=== PATIENT | female | born 1990 | race Caucasian/White ===

== ENCOUNTER 2016-09-08 05:56 | Emergency (ER) | payer OTHER ==
[2016-09-08] MEDS ORDERED: Ondansetron ODT 4 MG TAB ONE (06:35)
[2016-09-08 06:57] LABS: #Basophils 0.1 thou/uL (0.0-0.2); #Eosinphils 0.5 thou/uL (0.0-0.7); #Lymphocytes 3.6 thou/uL (1.20-3.40); #Monocytes 0.8 thou/uL (0.11-0.59); #Neutrophils 5.7 thou/uL (1.40-6.50); %Basophils 0.9 % (0.0-1.0); %Eosinophils 5.1 % (0.0-10.0); %Lymphocytes 33.9 % (21.0-51.0); %Monocytes 7.6 % (0.0-10.0); %Neutrophils 52.6 % (42.0-75.0); Hemoglobin 13.8 g/dL (12.0-16.0); Mean Corpuscular HGB CONC 33.9 g/dL (32.0-36.0); Mean Corpuscular Volume 94.5 fl (81.0-99.0); Mean Platelet Volume 7.1 fL (7.4-10.4); Platelet Count 292 thou/uL (130-400); RBC Distribution Width 12.5 % (11.5-14.5); Red Blood Cell (RBC) Count 4.31 mill/uL (4.20-5.40); White Blood Cell (WBC) Count 10.8 thou/uL (4.8-10.8)
[2016-09-08 07:17] LABS: CKMB 0.4 ng/mL (0-6.6); Troponin I Less than 0.010 ng/mL (< 0.028)
[2016-09-08 07:31] LABS: ALT (SGPT) 10 U/L (0-55); AST (SGOT) 12 U/L (5-34); Albumin 3.6 g/dL (3.5-5.0); Alkaline Phosphatase 76 U/L (40-150); Anion Gap 13 mmol/L (10-20); BUN (Urea Nitrogen) 9 mg/dL (7.0-18.7); Bilirubin, Total Less than 0.3 mg/dL (0.2-1.2); Calc. Creatinine Clearance 0 mL/min (70-130); Calcium 8.7 mg/dL (7.8-10.44); Carbon Dioxide 22 mmol/L (22-29); Chloride 108 mmol/L (98-107); Estimated GFR-MDRD 80; Globulin 2.5 g/dL (2.4-3.5); Glucose 90 mg/dL (70-105); Potassium 3.5 mmol/L (3.5-5.1); Protein, Total 6.1 g/dL (6.0-8.3); Sodium 139 mmol/L (136-145)
== END 2016-09-08 07:40 | disposition home or self-care (01) ==
LOC: MADERS 05:56
DX: R07.81 Pleurodynia (principal); R11.0 Nausea; K21.9 Gastro-esophageal reflux disease without esophagitis; G43.909 Migraine, unspecified, not intractable, without status migrainosus; F17.210 Nicotine dependence, cigarettes, uncomplicated; Z79.899 Other long term (current) drug therapy
CPT/HCPCS: 80053; 82553; 84484; 85025; 85379; Q0162

== ENCOUNTER 2017-02-07 16:37 | Emergency (ER) | payer BC, OTHER ==
[2017-02-07] MEDS ORDERED: Naproxen 500 MG TAB ONE (17:54)
[2017-02-07] MEDS ORDERED: HYDROcodone/Acetaminophen 10/325 mg Tablet ONE (17:54)
[2017-02-07] MEDS ORDERED: Diazepam 5 MG TAB ONE (17:54)
== END 2017-02-07 18:30 | disposition home or self-care (01) ==
LOC: MADERS 16:37
DX: M62.9 Disorder of muscle, unspecified (principal); K21.9 Gastro-esophageal reflux disease without esophagitis; F17.210 Nicotine dependence, cigarettes, uncomplicated; X50.0XXA Overexertion from strenuous movement or load, initial encounter
CPT/HCPCS: 99283

== ENCOUNTER 2017-10-14 08:38 | Emergency (ER) | payer BC ==
--- NOTE | 2017-10-14 09:38 | RAD ---
PA AND LATERAL CHEST RADIOGRAPH: Date: 10-14-17 History: Cough. Comparison: 06-15-14 FINDINGS: Cardiac silhouette and pulmonary vasculature are within normal limits. The lungs are clear. There has been no interval change from the prior exam. IMPRESSION: No acute cardiopulmonary process. POS: MATEUSZ
== END 2017-10-14 10:00 | disposition home or self-care (01) ==
LOC: MADERS 08:38
DX: J40 Bronchitis, not specified as acute or chronic (principal); G43.909 Migraine, unspecified, not intractable, without status migrainosus; K21.9 Gastro-esophageal reflux disease without esophagitis; F17.210 Nicotine dependence, cigarettes, uncomplicated
CPT/HCPCS: 71046

== ENCOUNTER 2018-02-16 19:37 | Emergency (ER) | payer BC ==
[2018-02-16] MEDS ORDERED: Ibuprofen 800 MG TAB ONE (19:58)
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
== END 2018-02-16 21:15 | disposition home or self-care (01) ==
LOC: MADERS 19:37
DX: S60.212A Contusion of left wrist, initial encounter (principal); S70.02XA Contusion of left hip, initial encounter; S80.02XA Contusion of left knee, initial encounter; I10 Essential (primary) hypertension; K21.9 Gastro-esophageal reflux disease without esophagitis; G43.909 Migraine, unspecified, not intractable, without status migrainosus; F17.210 Nicotine dependence, cigarettes, uncomplicated; Z79.899 Other long term (current) drug therapy; V29.9XXA Motorcycle rider (driver) (passenger) injured in unspecified traffic accident, initial encounter
CPT/HCPCS: 99406

== ENCOUNTER 2018-03-29 09:49 | Emergency (ER) | payer BC | END 2018-03-29 10:40 | disposition home or self-care (01) | LOC: MADERS 09:49 | DX: M43.6 Torticollis (principal); M62.838 Other muscle spasm; G43.709 Chronic migraine without aura, not intractable, without status migrainosus; F17.210 Nicotine dependence, cigarettes, uncomplicated; K21.9 Gastro-esophageal reflux disease without esophagitis; Z79.899 Other long term (current) drug therapy | CPT/HCPCS: 99283 ==

== ENCOUNTER 2020-08-26 00:51 | Emergency (ER) | payer SELFPAY ==
[2020-08-26 01:17] LABS: #Basophils 0.1 thou/uL (0.0-0.2); #Eosinphils 0.3 thou/uL (0.0-0.7); #Lymphocytes 4.7 thou/uL (1.20-3.40); #Monocytes 0.8 thou/uL (0.11-0.59); #Neutrophils 7.7 thou/uL (1.40-6.50); %Basophils 0.8 % (0.0-1.0); %Eosinophils 2.5 % (0.0-10.0); %Lymphocytes 34.6 % (21.0-51.0); %Monocytes 5.6 % (0.0-10.0); %Neutrophils 56.5 % (42.0-75.0); Hemoglobin 14.6 g/dL (12.0-16.0); Mean Corpuscular HGB CONC 32.7 g/dL (32.0-36.0); Mean Corpuscular Hemoglobin 33.5 pg (27.0-31.0); Mean Corpuscular Volume 102.2 fL (78.0-98.0); Mean Platelet Volume 7.8 fL (7.4-10.4); Platelet Count 361 thou/uL (130-400); RBC Distribution Width 12.4 % (11.5-14.5); Red Blood Cell (RBC) Count 4.38 mill/uL (4.20-5.40); White Blood Cell (WBC) Count 13.6 thou/uL (4.8-10.8)
[2020-08-26 01:30] LABS: Bilirubin Negative (Negative); Blood, Urine Negative (Negative); Clarity Clear (Clear); Glucose, Urine (Dipstick) Negative (Negative); Ketone, Urine Negative (Negative); Leukocyte Negative (Negative); Nitrite Negative (Negative); Protein, Urine (Dipstick) Negative (Neg-Trace); Specific Gravity, Urine 1.015 (1.005-1.030); Urobilinogen 0.2 mg/dL (Less than 2)
[2020-08-26] MEDS ORDERED: Morphine 4 MG/ML VIAL ONE ×2 (01:31→02:21)
[2020-08-26] MEDS ORDERED: Morphine 2 MG/ML VIAL ONE (01:32)
[2020-08-26] MEDS ORDERED: Aspirin Chewable 81 MG TAB ONE (01:32)
[2020-08-26 01:33] LABS: Pregnancy Test - Urine (BHCG) Negative (Negative); Pregu Control Background? CLEAR/WHITE (CLR/WHITE); Pregu Control Bar Appear? YES (CONTROL BAR); Specific Gravity 1.015 (1.002-1.036)
[2020-08-26] MEDS ORDERED: Ketorolac Tromethamine 30 MG/ML VIAL ONE (01:54)
[2020-08-26 02:21] LABS: ALT (SGPT) 12 U/L (8-55); AST (SGOT) 14 U/L (5-34); Albumin 4.1 g/dL (3.5-5.0); Alkaline Phosphatase 97 U/L (40-110); Anion Gap 15 mmol/L (10-20); BUN (Urea Nitrogen) 6 mg/dL (7.0-18.7); Bilirubin, Total 0.2 mg/dL (0.2-1.2); Calc. Creatinine Clearance 0 mL/min (70-130); Calcium 8.9 mg/dL (7.8-10.44); Carbon Dioxide 24 mmol/L (22-29); Chloride 105 mmol/L (98-107); Glucose 89 mg/dL (70-105); Protein, Total 7.1 g/dL (6.0-8.3); Sodium 141 mmol/L (136-145)
[2020-08-26 02:47] LABS: Critical Call Chemistry EMS.CLJ; Potassium 2.9 mmol/L (3.5-5.1)
== END 2020-08-26 02:40 | disposition home or self-care (01) ==
LOC: MADERS 00:51
DX: S29.011A Strain of muscle and tendon of front wall of thorax, initial encounter (principal); G43.909 Migraine, unspecified, not intractable, without status migrainosus; I10 Essential (primary) hypertension; K21.9 Gastro-esophageal reflux disease without esophagitis; J45.909 Unspecified asthma, uncomplicated; F17.210 Nicotine dependence, cigarettes, uncomplicated; Z79.899 Other long term (current) drug therapy; X58.XXXA Exposure to other specified factors, initial encounter
CPT/HCPCS: 71045; 80053; 81003; 81025; 83880; 84484; 85025; 85379; 93005; 96374; 96375; 96376; J1885; J2270

== ENCOUNTER 2020-09-13 15:52 | Emergency (ER) | payer SELFPAY ==
[~2020-09-13 15:52] MED LIST: Dextrose 5 %-0.45 % NaCl 1000 ml Bag ONE
[2020-09-13] MEDS ORDERED: Multivit, Adult Inj 10 ML VIAL ONE (16:46)
[2020-09-13] MEDS ORDERED: Thiamine HCl 200 MG/2 ML VIAL ONE (16:46)
[2020-09-13 17:07] LABS: Pregnancy Test - Urine (BHCG) Negative (Negative)
[2020-09-13 17:08] LABS: Bilirubin Small (Negative); Blood, Urine Negative (Negative); Clarity Clear (Clear); Glucose, Urine (Dipstick) Negative (Negative); Ketone, Urine Trace mg/dL (Negative); Leukocyte Negative (Negative); Nitrite Negative (Negative); Pregu Control Background? CLEAR/WHITE (CLR/WHITE); Pregu Control Bar Appear? YES (CONTROL BAR); Protein, Urine (Dipstick) 30 mg/dL (Neg-Trace); Specific Gravity 1.025 (1.002-1.036); Specific Gravity, Urine 1.025 (1.005-1.030); Urobilinogen 0.2 mg/dL (Less than 2)
[2020-09-13 17:15] LABS: Bacteria/HPF Rare-Few HPF (None Seen); RBC/HPF 0-3 HPF (0-3); Squamous Epithelial 0-3 HPF (0-3); WBC/HPF None Seen HPF (0-3)
[2020-09-13 17:16] LABS: Mucous/LPF 1+ LPF (<2+)
[2020-09-13 17:21] LABS: Amphetamine Not Detected (NotDetected); Barbiturates Screen Detected (NotDetected); Benzodiazepine Screen Not Detected (NotDetected); Cocaine Metabolite Screen Not Detected (NotDetected); Medtox Control Line Valid? VALID (VALID); Methadone Not Detected (NotDetected); Methamphetamine Not Detected (NotDetected); Opiate Screen Not Detected (NotDetected); Oxycodone Screen Not Detected (NotDetected); Phencyclidine (PCP) Not Detected (NotDetected); THC/Cannabinoid Screen Not Detected (NotDetected); Tricyclic Screen Not Detected (NotDetected)
[2020-09-13 17:29] LABS: Band 2 % (5-11); Burr Cells SLIGHT = 2-5 cells (100X) (0-1/hpf); Eosinophils 1 % (0-10); Hemoglobin 15.1 g/dL (12.0-16.0); Lymphocytes 35 % (21-51); MDiff Complete? YES; Mean Corpuscular HGB CONC 31.9 g/dL (32.0-36.0); Mean Corpuscular Hemoglobin 32.4 pg (27.0-31.0); Mean Corpuscular Volume 101.8 fL (78.0-98.0); Mean Platelet Volume 7.2 fL (7.4-10.4); Monocytes 6 % (0-10); Neutrophil 56 % (42-75); Platelet Count 397 thou/uL (130-400); Platelet Morphology Comment Appears Adequate; RBC Distribution Width 12.1 % (11.5-14.5); Red Blood Cell (RBC) Count 4.66 mill/uL (4.20-5.40); White Blood Cell (WBC) Count 11.1 thou/uL (4.8-10.8)
[2020-09-13 17:35] LABS: ALT (SGPT) 11 U/L (8-55); AST (SGOT) 16 U/L (5-34); Albumin 4.4 g/dL (3.5-5.0); Alkaline Phosphatase 86 U/L (40-110); Anion Gap 17 mmol/L (10-20); BUN (Urea Nitrogen) 9 mg/dL (7.0-18.7); Bilirubin, Total 0.2 mg/dL (0.2-1.2); CK (CPK) 28 U/L (29-168); Calc. Creatinine Clearance 0 mL/min (70-130); Calcium 9.7 mg/dL (7.8-10.44); Carbon Dioxide 23 mmol/L (22-29); Chloride 106 mmol/L (98-107); Globulin 3.3 g/dL (2.4-3.5); Glucose 93 mg/dL (70-105); Potassium 3.3 mmol/L (3.5-5.1); Protein, Total 7.7 g/dL (6.0-8.3); Sodium 143 mmol/L (136-145)
[2020-09-13] MEDS ORDERED: Diazepam 5 MG TAB ONE (18:12)
== END 2020-09-13 19:26 | disposition home or self-care (01) ==
LOC: MADERS 15:52
DX: F10.239 Alcohol dependence with withdrawal, unspecified (principal); F11.23 Opioid dependence with withdrawal; T39.8X5A Adverse effect of other nonopioid analgesics and antipyretics, not elsewhere classified, initial encounter; G43.909 Migraine, unspecified, not intractable, without status migrainosus; I10 Essential (primary) hypertension; K21.9 Gastro-esophageal reflux disease without esophagitis; J45.909 Unspecified asthma, uncomplicated; F17.210 Nicotine dependence, cigarettes, uncomplicated; Z79.899 Other long term (current) drug therapy
CPT/HCPCS: 70450; 71045; 80053; 80306; 81003; 81015; 81025; 82550; 84484; 85025; 93005; 94760; 96365; 96366; 96375; J3411; J7042

== ENCOUNTER 2021-02-16 10:44 | Emergency (ER) | payer SELFPAY | END 2021-02-16 11:40 | disposition home or self-care (01) | LOC: MADERS 10:44 | DX: J02.0 Streptococcal pharyngitis (principal); T78.40XA Allergy, unspecified, initial encounter; I10 Essential (primary) hypertension; K21.9 Gastro-esophageal reflux disease without esophagitis; F17.210 Nicotine dependence, cigarettes, uncomplicated | CPT/HCPCS: 96372; 99283; J1040 ==

== ENCOUNTER 2022-01-07 16:58 | Emergency (ER) | payer BC ==
[2022-01-07] MEDS ORDERED: Ketorolac Tromethamine 30 MG/ML VIAL ONE (17:35)
[2022-01-07] MEDS ORDERED: Orphenadrine Citrate 60 MG/2 ML VIAL ONE (17:35)
== END 2022-01-07 18:02 | disposition home or self-care (01) ==
LOC: MADERS 16:58
DX: G89.29 Other chronic pain (principal); M54.50 Low back pain, unspecified; K21.9 Gastro-esophageal reflux disease without esophagitis; I10 Essential (primary) hypertension; F17.210 Nicotine dependence, cigarettes, uncomplicated; Z79.899 Other long term (current) drug therapy
CPT/HCPCS: 96372; 99283; J1885; J2360

== ENCOUNTER 2022-11-28 14:04 | Emergency (ER) | payer BC ==
[2022-11-28] MEDS ORDERED: Lidocaine 1% (PF) 30 ML VIAL ONE (15:25)
[2022-11-28] MEDS ORDERED: Ibuprofen 800 MG TAB ONE (15:30)
[2022-11-28] MEDS ORDERED: Sulfameth/Trimethoprim DS 800-160mg TAB ONE (15:30)
[2022-11-28] MEDS ORDERED: Azithromycin 200 MG/5 ML Oral Suspension ONE (17:50)
== END 2022-11-28 16:19 | disposition home or self-care (01) ==
LOC: MADERS 14:04
DX: S61.213A Laceration without foreign body of left middle finger without damage to nail, initial encounter (principal); L02.415 Cutaneous abscess of right lower limb; K21.9 Gastro-esophageal reflux disease without esophagitis; I10 Essential (primary) hypertension; F17.210 Nicotine dependence, cigarettes, uncomplicated; W26.0XXA Contact with knife, initial encounter
CPT/HCPCS: 12001; J2001

== ENCOUNTER 2023-12-26 13:21 | Emergency (ER) | payer BC | END 2023-12-26 13:49 | disposition home or self-care (01) | LOC: MADERS 13:21 | DX: R60.0 Localized edema (principal); G62.9 Polyneuropathy, unspecified; Z76.0 Encounter for issue of repeat prescription; I10 Essential (primary) hypertension; F17.210 Nicotine dependence, cigarettes, uncomplicated | CPT/HCPCS: 99284 ==

== ENCOUNTER 2024-04-06 00:23 | Emergency (ER) | payer BC ==
[2024-04-06] MEDS ORDERED: Ipratropium/Albuterol 3 ML NEB ONE (01:12)
[2024-04-06] MEDS ORDERED: Dexamethasone 10 MG/ML VIAL ONE (01:13)
[2024-04-06] MEDS ORDERED: Benzonatate 100 MG CAP ONE (01:13)
== END 2024-04-06 02:17 | disposition home or self-care (01) ==
LOC: MADERS 00:23
DX: J06.9 Acute upper respiratory infection, unspecified (principal); J45.901 Unspecified asthma with (acute) exacerbation; I10 Essential (primary) hypertension; K21.9 Gastro-esophageal reflux disease without esophagitis; F17.210 Nicotine dependence, cigarettes, uncomplicated; Z79.899 Other long term (current) drug therapy
CPT/HCPCS: 71046; 87428; 96372; J1100; J7620

== ENCOUNTER 2024-04-07 15:02 | Emergency (ER) | payer BC ==
[2024-04-07] MEDS ORDERED: Ipratropium/Albuterol 3 ML NEB ONE ×2 (15:40→16:47)
[2024-04-07] MEDS ORDERED: AMOXicillin 250 MG CAP ONE (16:40)
[2024-04-07] MEDS ORDERED: Doxycycline 100 MG CAP ONE (16:40)
[2024-04-07] MEDS ORDERED: Lidocaine 1% PF 5 ML VIAL ONE (16:52)
[2024-04-07] MEDS ORDERED: cefTRIAXone (ROCEPHIN) 1 GM VIAL ONE (16:52)
[2024-04-07] MEDS ORDERED: Ketorolac Tromethamine 30 MG (1 mL) VIAL ONE (17:25)
[2024-04-07] MEDS ORDERED: Acetaminophen 325 MG TAB ONE (17:25)
== END 2024-04-07 19:20 | disposition home or self-care (01) ==
LOC: MADERS 15:02
DX: J18.9 Pneumonia, unspecified organism (principal); B97.89 Other viral agents as the cause of diseases classified elsewhere; J45.901 Unspecified asthma with (acute) exacerbation; R09.02 Hypoxemia; K21.9 Gastro-esophageal reflux disease without esophagitis; F17.210 Nicotine dependence, cigarettes, uncomplicated; Z79.899 Other long term (current) drug therapy
CPT/HCPCS: 94799; 96372; J0696; J1885; J7620

== ENCOUNTER 2024-04-20 20:09 | Emergency (ER) | payer BC | END 2024-04-20 22:45 | disposition home or self-care (01) | LOC: MADERS 20:09 | DX: N39.0 Urinary tract infection, site not specified (principal); B37.31 Acute candidiasis of vulva and vagina; K21.9 Gastro-esophageal reflux disease without esophagitis; I10 Essential (primary) hypertension; F17.210 Nicotine dependence, cigarettes, uncomplicated; Z79.899 Other long term (current) drug therapy | CPT/HCPCS: 87077; 87086; 87186; 99283 ==

== ENCOUNTER 2024-04-22 15:58 | Emergency (ER) | payer BC ==
[~2024-04-22 15:58] MED LIST changes: -Dextrose 5 %-0.45 % NaCl 1000 ml Bag ONE; +Iopamidol 370 76% 100 ML VIAL ONE
[2024-04-22 16:37] LABS: Bilirubin Negative (Negative); Blood, Urine Moderate (Negative); Clarity Slightly Cloudy (Clear); Glucose, Urine (Dipstick) Negative (Negative); Ketone, Urine Negative (Negative); Leukocyte Trace (Negative); Nitrite Negative (Negative); Protein, Urine (Dipstick) > or equal to 300 mg/dL (Neg-Trace); Urobilinogen 0.2 mg/dL (Less than 2)
[2024-04-22 16:46] LABS: CAUTI Indications for Culture Pelvic or flank pain
[2024-04-22 16:47] LABS: Bacteria/HPF 1+ HPF (None Seen)
[2024-04-22 16:48] LABS: Urine Culture Reflex Yes Yes
[2024-04-22] MEDS ORDERED: Ipratropium/Albuterol 3 ML NEB ONE ×2 (17:05→19:17)
[2024-04-22] MEDS ORDERED: Ketorolac Tromethamine 30 MG (1 mL) VIAL ONE (17:05)
[2024-04-22] MEDS ORDERED: guaiFENesin ER 600 MG TAB ONE (17:05)
[2024-04-22 17:52] LABS: ALT (SGPT) 14 U/L (8-55); AST (SGOT) 17 U/L (5-34); Albumin 2.6 g/dL (3.5-5.0); Alkaline Phosphatase 92 U/L (40-110); Anion Gap 15 mmol/L (10-20); BUN (Urea Nitrogen) 8 mg/dL (7.0-18.7); Bilirubin, Total 0.7 mg/dL (0.2-1.2); Calc. Creatinine Clearance 0 mL/min (70-130); Calcium 8.3 mg/dL (7.8-10.44); Carbon Dioxide 23 mmol/L (22-29); Chloride 103 mmol/L (98-107); Estimated GFR 71; Glucose 97 mg/dL (70-105); Lipase 7 U/L (8-78); Potassium 3.3 mmol/L (3.5-5.1); Protein, Total 6.6 g/dL (6.0-8.3); Sodium 138 mmol/L (136-145)
[2024-04-22 17:53] LABS: Hematocrit 36.2 % (36.0-47.0); Hemoglobin 11.4 g/dL (12.0-16.0); Mean Corpuscular HGB CONC 31.3 g/dL (32.0-36.0); Mean Corpuscular Volume 89.5 fl (78.0-98.0); Mean Platelet Volume 6.9 fL (7.4-10.4); Platelet Count 480 10x3/uL (130-400); RBC Distribution Width 15.5 % (11.5-14.5); Red Blood Cell (RBC) Count 4.05 mill/uL (4.20-5.40); White Blood Cell (WBC) Count 19.1 10x3/uL (4.8-10.8)
[2024-04-22 17:54] LABS: Anisocytosis SLIGHT = 6-15 cells (100X) (0-5/hpf); Band 2 % (5-11); Eosinophils 1 % (0-10); Hypochromia MODERATE=16-30 cells (100X) (0-5/hpf); Lymphocytes 7 % (21-51); MDiff Complete? YES; Manual Diff?? YES; Monocytes 3 % (0-10); Neutrophil 86 % (42-75); Reactive Lymphocytes 1 % (0-10)
[2024-04-22 17:55] LABS: Platelet Adequacy Comment Appears Increased
[2024-04-22 18:25] LABS: Amphetamine Not Detected (NotDetected); Barbiturates Screen Not Detected (NotDetected); Benzodiazepine Screen Not Detected (NotDetected); Cocaine Metabolite Screen Not Detected (NotDetected); Methadone Not Detected (NotDetected); Methamphetamine Not Detected (NotDetected); Opiate Screen Not Detected (NotDetected); Oxycodone Screen Not Detected (NotDetected); Phencyclidine (PCP) Not Detected (NotDetected); THC/Cannabinoid Screen Not Detected (NotDetected); Tricyclic Screen Not Detected (NotDetected)
[2024-04-22] MEDS ORDERED: Sodium Chloride 0.9% 100 ML ONE (19:17)
[2024-04-22] MEDS ORDERED: cefTRIAXone (ROCEPHIN) 2 GM VIAL ONE (19:17)
[2024-04-22 20:07] LABS: Base Excess-Venous 4.7 mmol/L (-2.0 to 3.0); Bicarbonate (HCO3v) 29.1 mmol/L (22.0-28.0); CO2 Tension (PvCO2) 41.5 mmHg (42.0-51.0); Calcium, Ionized 1.07 mmol/L (1.15-1.33); Chloride 99 mmol/L (98-107); Hemoglobin - Calc 12.6 g/dL (12.0-16.0); Sodium 138 mmol/L (138-145); T. Carbon Dioxide 30.3 mmol/L (22.0-28.0); vO2 Saturation-calc 86.3 % (60.0-85.0)
[2024-04-22] MEDS ORDERED: traMADol HCl 50 MG TAB ONE (20:09)
[2024-04-23] MEDS ORDERED: Ondansetron PF 4 MG/2 ML Vial ONE (01:08)
[2024-04-23] MEDS ORDERED: Morphine 2 MG/ML VIAL ONE (01:08)
== END 2024-04-23 01:36 | disposition short-term general hospital (02) ==
LOC: MADERS 15:58
DX: N39.0 Urinary tract infection, site not specified (principal); N10 Acute pyelonephritis; R09.02 Hypoxemia; J18.9 Pneumonia, unspecified organism; K21.9 Gastro-esophageal reflux disease without esophagitis; I10 Essential (primary) hypertension; F17.210 Nicotine dependence, cigarettes, uncomplicated; Z79.899 Other long term (current) drug therapy
CPT/HCPCS: 71046; 71275; 80053; 80306; 81001; 82330; 82803; 83605; 83690; 84443; 85025; 85379; 87040; 87070; 87086; 87205; 96365; 96375; J0696; J1885; J2272; J2405; J7620; Q9967

== ENCOUNTER 2024-07-14 08:15 | Emergency (ER) | payer BC ==
[2024-07-14] MEDS ORDERED: Fluconazole 100 MG TAB ONE (09:49)
== END 2024-07-14 09:50 | disposition home or self-care (01) ==
LOC: MADERS 08:15
DX: H65.91 Unspecified nonsuppurative otitis media, right ear (principal); F17.210 Nicotine dependence, cigarettes, uncomplicated; I10 Essential (primary) hypertension; G43.909 Migraine, unspecified, not intractable, without status migrainosus; K21.9 Gastro-esophageal reflux disease without esophagitis; G89.29 Other chronic pain; M54.2 Cervicalgia; Z79.899 Other long term (current) drug therapy
CPT/HCPCS: 87081; 87430; 99283

== ENCOUNTER 2025-01-11 19:44 | Emergency (ER) | payer BC ==
[2025-01-11] MEDS ORDERED: Methocarbamol 500 MG TAB ONE (20:10)
== END 2025-01-11 20:36 | disposition home or self-care (01) ==
LOC: MADERS 19:44
DX: S39.012A Strain of muscle, fascia and tendon of lower back, initial encounter (principal); M54.42 Lumbago with sciatica, left side; I10 Essential (primary) hypertension; F17.210 Nicotine dependence, cigarettes, uncomplicated; X50.1XXA Overexertion from prolonged static or awkward postures, initial encounter
CPT/HCPCS: 96372; 99283; J1885

== ENCOUNTER 2025-03-15 19:45 | Emergency (ER) | payer BC ==
[2025-03-15] MEDS ORDERED: Bacitracin 1 PK ONE (20:34)
[2025-03-15] MEDS ORDERED: Lidocaine 1% PF 5 ML VIAL ONE (20:34)
== END 2025-03-15 20:52 | disposition home or self-care (01) ==
LOC: MADERS 19:45
DX: S01.111A Laceration without foreign body of right eyelid and periocular area, initial encounter (principal); S60.022A Contusion of left index finger without damage to nail, initial encounter; S60.032A Contusion of left middle finger without damage to nail, initial encounter; I10 Essential (primary) hypertension; F17.210 Nicotine dependence, cigarettes, uncomplicated; X58.XXXA Exposure to other specified factors, initial encounter
CPT/HCPCS: 12011; 99283

== ENCOUNTER 2025-04-13 14:00 | Emergency (ER) | payer BC ==
[2025-04-13 14:41] LABS: #Basophils 0.1 thou/uL (0.0-0.2); #Eosinophils 0.3 thou/uL (0.0-0.7); #Lymphocytes 3.3 thou/uL (1.20-3.40); #Monocytes 0.7 thou/uL (0.11-0.59); #Neutrophils 7.2 thou/uL (1.40-6.50); %Basophils 0.8 % (0.0-1.0); %Eosinophils 2.9 % (0.0-10.0); %Lymphocytes 28.5 % (21.0-51.0); %Monocytes 6.1 % (0.0-10.0); %Neutrophils 61.7 % (42.0-75.0); Hematocrit 39.3 % (36.0-47.0); Hemoglobin 12.5 g/dL (12.0-16.0); Mean Corpuscular Hemoglobin 28.6 pg (27.0-31.0); Mean Corpuscular Volume 89.8 fl (78.0-98.0); Platelet Count 435 10x3/uL (130-400); Red Blood Cell (RBC) Count 4.38 mill/uL (4.20-5.40); White Blood Cell (WBC) Count 11.7 10x3/uL (4.8-10.8)
[2025-04-13 14:56] LABS: Anion Gap 13 mmol/L (10-20); BUN (Urea Nitrogen) 9 mg/dL (7.0-18.7); Calc. Creatinine Clearance 0 mL/min (70-130); Calcium 8.4 mg/dL (7.8-10.44); Carbon Dioxide 25 mmol/L (22-29); Chloride 107 mmol/L (98-107); Glucose 95 mg/dL (70-105); Potassium 4.0 mmol/L (3.5-5.1); Sodium 141 mmol/L (136-145)
[2025-04-13 15:05] LABS: Glucose, Urine (Dipstick) Negative (Negative); Leukocyte Negative (Negative); Protein, Urine (Dipstick) Negative (Neg-Trace); Specific Gravity, Urine 1.020 (1.005-1.030)
[2025-04-13 15:10] LABS: Pregnancy Test - Urine (BHCG) Negative (Negative); Pregu Control Background? CLEAR/WHITE (CLR/WHITE); Pregu Control Bar Appear? YES (CONTROL BAR)
[2025-04-13 15:13] LABS: Bacteria/HPF Rare-Few HPF (None Seen); CAUTI Indications for Culture Alt mental st,lethar; RBC/HPF 0-3 HPF (0-3); WBC/HPF 0-3 HPF (0-3)
[2025-04-13 15:15] LABS: Urine Culture Reflex No No
[2025-04-13 15:19] LABS: Cocaine Metabolite Screen Negative (Negative); THC/Cannabinoid Screen Negative (Negative); Tricyclic Screen Negative (Negative)
[2025-04-13] MEDS ORDERED: Acetaminophen 500 MG TAB ONE (15:58)
== END 2025-04-13 16:30 | disposition home or self-care (01) ==
LOC: MADERS 14:00
DX: R53.83 Other fatigue (principal); R29.701 NIHSS score 1; I10 Essential (primary) hypertension; G43.909 Migraine, unspecified, not intractable, without status migrainosus; M54.9 Dorsalgia, unspecified; G89.29 Other chronic pain; J45.909 Unspecified asthma, uncomplicated; K21.9 Gastro-esophageal reflux disease without esophagitis; F17.210 Nicotine dependence, cigarettes, uncomplicated; Z71.6 Tobacco abuse counseling; Z79.899 Other long term (current) drug therapy
CPT/HCPCS: 36415; 80048; 80306; 81001; 81025; 84443; 85025; 96372; 99284; J1885

== ENCOUNTER 2025-05-10 17:17 | Emergency (ER) | payer BC | END 2025-05-10 19:43 | disposition home or self-care (01) | LOC: MADERS 17:17 | DX: J06.9 Acute upper respiratory infection, unspecified (principal); B97.89 Other viral agents as the cause of diseases classified elsewhere; I10 Essential (primary) hypertension; F17.210 Nicotine dependence, cigarettes, uncomplicated | CPT/HCPCS: 99283 ==